=== PATIENT | female | born 1950 | race Caucasian/White ===

== ENCOUNTER 2022-03-04 16:16 | Emergency (ER) | payer MEDICARE, SELFPAY | END 2022-03-04 17:48 | disposition home or self-care (01) | LOC: ERS 16:16 | DX: S09.90XA Unspecified injury of head, initial encounter (principal); I63.81 Other cerebral infarction due to occlusion or stenosis of small artery; F17.210 Nicotine dependence, cigarettes, uncomplicated; W22.8XXA Striking against or struck by other objects, initial encounter | CPT/HCPCS: 70450 ==

== ENCOUNTER 2022-04-05 14:44 | Emergency (ER) | payer OTHER, MEDICARE | END 2022-04-05 20:22 | disposition home or self-care (01) | LOC: ERS 14:44 | DX: M54.50 Low back pain, unspecified (principal); F17.210 Nicotine dependence, cigarettes, uncomplicated; V40.5XXA Car driver injured in collision with pedestrian or animal in traffic accident, initial encounter | CPT/HCPCS: 70450; 72125; 72128; 72131 ==